=== PATIENT | female | born 1965 | race Caucasian/White ===

== ENCOUNTER 2017-09-25 16:47 | Emergency (ER) | payer OTHER ==
[~2017-09-25] VITALS: Ht 162.6 cm; Wt 63.0 kg
[~2017-09-25 16:47] MED LIST: MELO15TA20 PO
[2017-09-25 16:51] VITALS: BP 146/81; PULSE 75; RESP 16; TEMP 97.6; O2SAT 99
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
[2017-09-25] MEDS ORDERED: ACETAMINOPHEN 325 MG TAB PO ONE (17:30)
[2017-09-25] MEDS ORDERED: TETANUS/DIPHTHERIA TOXOID ADULT 0.5 ML VIAL IM ONE (17:30)
[2017-09-25 17:31] VITALS: BP_SYST 132; BP_SYST 142; BP_SYST 145; BP_DIAS 77; BP_DIAS 78; BP_DIAS 81; RESP 18; RESP 20
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
[2017-09-25 18:58] VITALS: BP 145/77; PULSE 73; RESP 16; O2SAT 98
[2017-09-25] MEDS ORDERED: TYLE325T PO (18:59)
[2017-09-25] MEDS ORDERED: BACITRACIN TOP OINT 15 GM TUBE TOPICAL ONE (19:00)
--- NOTE | 2017-09-25 21:50 | EKG ---
Date Performed: 09/25/2017 Time Performed: 17:54:37 PTAGE: 51 years EKG: Sinus rhythm NORMAL ECG NO PREVIOUS TRACING DOCTOR: Chente Gutierrez Interpretating Date/Time 09/25/2017 21:48:39
[2017-10-02] MEDS ORDERED: CLIN300C5 PO (09:57)
== END 2017-09-25 19:35 | disposition home or self-care (01) ==
LOC: PHED 16:47
DX: R51 Headache (principal); S01.511A Laceration without foreign body of lip, initial encounter; S00.81XA Abrasion of other part of head, initial encounter; S80.212A Abrasion, left knee, initial encounter; S80.211A Abrasion, right knee, initial encounter; S60.417A Abrasion of left little finger, initial encounter; R42 Dizziness and giddiness; V86.99XA Unspecified occupant of other special all-terrain or other off-road motor vehicle injured in nontraffic accident, initial encounter; Z23 Encounter for immunization
CPT/HCPCS: 70486; 73100; 73120; 90471; 90714; 93005